=== PATIENT | male | born 2000 | race African-American/Black ===

== ENCOUNTER → 2021-02-16 | Outpatient (CLI) | payer BC ==
--- NOTE | 2021-02-17 09:03 | EEG ---
DATE OF SERVICE: 02/16/2021 ELECTROENCEPHALOGRAM EEG NUMBER: [id number]. OBJECTIVE: The patient is a 20-year-old male with seizures. DESCRIPTION: This is a digital study. Electrodes are placed according to the international 10-20 system. Bipolar and referential montages are available. Activation procedures typically include hyperventilation and intermittent photic stimulation. INTERPRETATION: The waking background consists of 8-9 Hz, 50-100 microvolt activity, symmetrically distributed over parietooccipital regions and reactive to eye opening. Hyperventilation and intermittent photic stimulation are noncontributory. Stage 1 sleep was achieved with normal electroencephalogram patterns. IMPRESSION: This electroencephalogram with the patient awake and asleep is within normal limits. There is no focal, paroxysmal, or epileptiform . Thank you for letting us help with the patient's care. BETTYE DR: Tai TID: [id number] CC: TAYLOR Lewis
== END ==
LOC: RT 07:59
PROVIDERS: ATTEND Nurse Practitioner Family
DX: R56.9 Unspecified convulsions (principal)
CPT/HCPCS: 95816